=== PATIENT | female | born 1955 | race Caucasian/White ===

== ENCOUNTER → 2018-02-27 11:45 | Day surgery (SDC) | payer BC ==
--- NOTE | 2018-02-19 18:11 | HP ---
AMENDED REPORT NOW INCLUDES COSIGNER DESIGNATION PREOPERATIVE HISTORY AND PHYSICAL: DATE OF ADMISSION/SURGERY: 02/27/18 DATE OF OFFICE VISIT: 02/19/18 ATTENDING SURGEON: Dr. Stella Black.* (DICTATED BY ISAI ROCHA) PROCEDURE: Right knee arthroscopy, partial meniscectomy. CHIEF COMPLAINT: Right knee. HISTORY OF PRESENT ILLNESS: Kelly is a 62-year-old female, who presents to the clinic for followup of right knee pain due to a meniscus tear. She also has osteoarthritis. She has failed conservative measures and therefore agreed to undergo a right knee arthroscopy with partial meniscectomy with Dr. Black on . PAST MEDICAL HISTORY: Hypertension, GERD, iron-deficiency anemia, depression, coronary artery disease, history of bariatric surgery, history of bypass, chronic neck and back pain, osteoarthritis, anxiety, fibromyalgia, and nephrolithiasis. PAST SURGICAL HISTORY: , abdominoplasty, vertical banded gastroplasty , diskectomy, CABG, shoulder arthroscopy, kidney stone removal, and LASIK surgery. The patient denies prior complications with anesthesia. MEDICATIONS: 1. Buprenorphine 10 mcg 1 patch weekly. 2. Fluoxetine 40 mg 1 by mouth every day. 3. at night as needed. 4. Lisinopril 5 mg 1 by mouth every day. 5. Robaxin 500 mg 1 capsule at bedtime. 6. Nabumetone 750 mg 1 cap daily as needed. 7. Voltaren 1% 2 g as needed for pain. 8. Crestor 5 mg 1 by mouth daily. 9. Lidocaine 5% as needed. 10. Esomeprazole 40 mg 1 cap by mouth every day. 11. Vicodin 5/300 one to two every 6 hours as needed for pain. 12. Alprazolam 0.25 one by mouth 3 times a day as needed for anxiety. 13. Hyoscyamine sulfate 0.125 mg 1 sublingual every day as needed. 14. Zovirax 5% apply as needed. 15. Multivitamin 1 by mouth daily. 16. Vitamin B complex 1 by mouth daily. 17. Vitamin D3 5000 units 1 by mouth daily. 18. Turmeric 1000 mg 1 cap daily. 19. Fluconazole 150 one by mouth as needed. 20. Diflucan 100 mg 1 by mouth every day as needed. ALLERGIES: DEMEROL. FAMILY HISTORY: Positive for hypertension, cancer, RA, and osteoarthritis. SOCIAL HISTORY: She lives with her spouse. 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 She is right-hand dominant. She denies tobacco or illegal drug use. She denies alcohol consumption. REVIEW OF SYSTEMS: A 14-point review of systems was reviewed with the patient. Positive for current complaint, otherwise negative. Denies fever, chills, chest pain, shortness of breath, history of bleeding disorder, history of DVT or PE. PHYSICAL EXAMINATION GENERAL: A 62-year-old well-developed, well-nourished female, in no acute distress. Alert and oriented x3. VITAL SIGNS: Height 65, weight 212, pulse 60, blood pressure 128/78, temperature 97.7, BMI 35.3. HEENT: Normocephalic, atraumatic. PERRLA. Throat clear. NECK: Supple. PULMONARY: Lungs are clear to auscultation bilaterally. No wheezing, rhonchi, or rales. CARDIO: Regular rate and rhythm. S1, S2. No murmurs, gallops, or rubs. No edema. ABDOMEN: Positive bowel sounds. Soft, nontender. NEURO: Alert and oriented x3. Cranial nerves grossly intact. MUSCULOSKELETAL: Right lower extremity: Skin is intact. Range of motion is 0 to 120. Stable to varus and valgus stress. Mild effusion. Stable Katarina. Negative posterior drawer. Calf soft, nontender. +5/5 strength to ankle dorsiflexion and plantarflexion. +2 DP pulse. Sensation intact to light touch distally. DIAGNOSTIC STUDIES: MRI of the right knee revealed moderate osteoarthritic changes with chondral degeneration and vertical tear of the posterior horn of the medial meniscus. IMPRESSION: Right knee meniscus tear and osteoarthritis. PLAN: The patient is scheduled to undergo a right knee arthroscopy with partial meniscectomy with Dr. Black on 02/27/18. She will follow up 10 to 14 days postop. We will discuss with her PCP , Radha Grimaldo, as to the appropriate postop pain management since she is a chronic pain patient. ISAI ROCHA [id number]/[facility] #: [id number] [facility]Car
[~2018-02-27 11:45] MED LIST: Buffered Lidocaine 0.9% SYRIN* 5 ML/SYR SYRINGE INTRADERM ONE; Buffered Lidocaine 0.9% SYRIN* 5 ML/SYR SYRINGE ONE; Dexamethasone IV* 4 MG/ML 1 ML (4 MG) ONE; DiMENhydriNATE IV* 50 MG/ML VIAL IV PUSH PRN; HYDROmorphone INJ1* 1 MG/ML SYRINGE IV PRN; Ketorolac INJ* 30 MG/ML 1 ML VIAL ONE; Lidocaine 1% MPF wEPI 200,000* 30 ML SDV ONE; Midazolam* 1 MG/ML 5 ML VIAL (5 MG) ONE; Morphine PCA ADULT* 5 MG/ML 30 ML ONE; Naloxone* 0.4 MG/ML 1 ML VIAL IV PRN; Ondansetron INJ* 2 MG/ML VIAL IV PRN; Ondansetron INJ* 2 MG/ML VIAL ONE; Propofol* 10 MG/ML 20 ML BTL IV PUSH ONE; Ropivacaine* 2 MG/ML 20 ML VIAL (0.2%) ONE; Scopolamine 1.5 mg* PATCH TRANSDERM PRN; Scopolamine PATCH Remove* 1 NOTE MISC PATCH OFF ONE; ceFAZolin 2 GM PREMIX in ORs 2 GM/50 ML BAG IVPB ONE; fentaNYL* 50 MCG/ML 2 ML VIAL (100 MCG VIAL) IV PRN; fentaNYL* 50 MCG/ML 2 ML VIAL (100 MCG VIAL) ONE; methylPREDNISolone ACETATE 80* 80 MG/ML 1 ML VIAL ONE; oxyCODONE/Acetamin 5/325 MG* TAB ONE; oxyCODONE/Acetamin 5/325 MG* TAB PO PRN
[2018-02-27 17:45] VITALS: BP 129/65
--- NOTE | 2018-02-28 14:40 | OP ---
CC: PCP OPERATIVE REPORT: DATE OF OPERATION: 02/27/18 DATE OF : 59 SURGEON: Stella Black MD BOX FEEDER: ISAI Portillo An switchboard operator assistant was needed for the entirety of the case because of the patient's size and her body habit us and was utilized for positioning, retraction, and holding the leg. ANESTHESIOLOGIST: Dr. Landeros. ANESTHESIA: General. PRE-OP DIAGNOSIS: Meniscus tear as well as arthritis. POST-OP DIAGNOSIS: Loose body, numerous; synovitis; arthritis in the patellofemoral and the lateral compartment; lateral meniscus tearing. OPERATIVE PROCEDURE: Right knee arthroscopy with partial lateral meniscectomy, synovectomy, chondrop lasty of the patella and lateral compartment, removal of loose bodies numerous all less than 5 mm. COMPLICATIONS: None. ESTIMATED BLOOD LOSS: Minimal. INDICATIONS: Kelly Winters is a 62-year-old female who has had persistent knee pain that began several months ago. Over a year, she has chronic pain, twisting, catching pain. She was very active. Risk s and benefits were discussed at length included, but not limited to bleeding; infection; damage to n erves, vessels, surrounding structures; wound nonhealing; persistent pain; need for further surgery, scarring, stiffness, incomplete relief of symptoms, risk of anesthesia. We did discuss that she does have arthritis. This may not be responsive to arthroscopy and the patient did seek a second opinion at my request and elected to proceed with surgical treatment. DESCRIPTION OF PROCEDURE: The patient was greeted in the preoperative area by the attending surgeon. Correct extremity was marked and consent was confirmed. The patient was brought back to the operat ing suite. The patient was placed in supine position on the operating table. She then underwent gen eral anesthesia with LMA intubation, after which an unsterile tourniquet was placed on the proximal t high. Lateral post was positioned. The right leg was then prepped and draped in the usual sterile fa shion beginning with chlorhexidine soap, scrub, and alcohol wipe and a final prep of ChloraPrep. Next, after appropriate surgical pause indicating site, side, procedure and administration of antibio tics, the knee was intraarticularly injected with 1% lidocaine with epi. Anterolateral portal was ma de sharply with 11-blade. The scope was introduced through the joint. Joint was examined. The ACL and PCL were intact. The medial femoral condyle had 0 to 1 changes, except for one portion more prox imally, along this area she had grade 2 changes. The medial meniscus was intact at the body. The ro ot had some mild fraying. There was abundant synovitis anteriorly. The shaver as well as the electr ocautery device were then used to do hemostasis and remove the abundant synovitis. This revealed the lateral compartment had grade 4 changes that left grade 3 changes of the trochlea. The patella had grade 1 and 2 changes. There were numerous loose bodies, loose chondral pieces that were lavaged and removed. The medial and lateral gutters were intact. The shaver and electrocautery device were use d to gain hemostasis and all clots were removed along with synovitis. The knee was placed in figure- of-four where there were grade 3 and some areas of grade 4 changes on the tibial plateau. Lateral men iscus had unstable fraying of the body as well as the root, which was debrided using the shaver. Onc e the procedure was completed and images were obtained, the knee was then sterilely lavaged and remov ed loose debris. Wounds were then copiously irrigated with sterile saline. Portals were closed with 3-0 nylon. Sterile dressings were applied as well as Cryo/Cuff. She was awoken from anesthesia and transferred to PACU in stable condition. POSTOPERATIVE PLAN: Range of motion as tolerated. Weightbearing with crutches for the first 3 to 5 days. Discharge on pain medication. DVT prophylaxis considered, but deferred due to no previous per thelma or family history. I will see the patient back in 10 to 14 days. [id number]/[facility] #: [id number]
== END | disposition home or self-care (01) ==
LOC: OR 11:45
PROVIDERS: ATTEND Orthopaedic Surgery
DX: S83.281A Other tear of lateral meniscus, current injury, right knee, initial encounter (principal); M65.861 Other synovitis and tenosynovitis, right lower leg; M23.41 Loose body in knee, right knee; M17.11 Unilateral primary osteoarthritis, right knee; G89.18 Other acute postprocedural pain; I10 Essential (primary) hypertension; K21.9 Gastro-esophageal reflux disease without esophagitis; D50.9 Iron deficiency anemia, unspecified; I25.10 Atherosclerotic heart disease of native coronary artery without angina pectoris; M19.90 Unspecified osteoarthritis, unspecified site; F41.8 Other specified anxiety disorders; X58.XXXA Exposure to other specified factors, initial encounter; Y92.9 Unspecified place or not applicable
CPT/HCPCS: A9270-GY; J0690; J1040; J1100; J1885; J2001; J2250; J2270; J2405; J2704; J2795; J3010

== ENCOUNTER 2018-08-06 12:22 | Inpatient (IN) | payer BC ==
--- NOTE | 2018-08-01 09:42 | HP ---
Amended report to enter cosigning physician. HISTORY AND PHYSICAL: DATE OF ADMISSION/SURGERY: 08/06/18 DATE OF OFFICE VISIT: 07/31/18 SURGEON: oCurtney Prieto MD* (dictated by ISAI Newton). PROCEDURE: Right total knee arthroplasty. CHIEF COMPLAINT: Right knee pain. HISTORY OF PRESENT ILLNESS: Ms. Winters is a 63-year-old female who complains of right knee pain. She has failed conservative treatment and elected to proceed with right total knee arthroplasty. PAST MEDICAL HISTORY: 1. Anxiety. 2. Depression. 3. Esophageal spasms. 4. Hypertension. 5. GERD. 6. Byers esophagus. 7. Coronary artery disease. PAST SURGICAL HISTORY: 1. CABG in 2013. 2. Uvuloplasty. 3. . 4. Gastroplasty. 5. Abdominoplasty. 6. Lumbar diskectomy. 7. Right shoulder arthroscopy. 8. Right knee arthroscopy. CURRENT MEDICATIONS: 1. Multivitamin. 2. Vitamin B complex. 3. Vitamin D3. 4. Zofran 4 mg every 8 hours as needed. 5. Lidocaine patch as needed. 6. Alprazolam 0.25 mg 3 times a day as needed. 7. Crestor 5 mg every day. 8. Lisinopril 5 mg a day. 9. Robaxin 500 mg q.h.s. 10. Nabumetone 750 mg twice a day. 11. Hyoscyamine 0.125 mg sublingual as needed. 12. Bupropion 7.5 mg weekly. 13. Vicodin 7.5 mg 1 to 2 every 6 hours as needed. 14. Omeprazole 40 mg daily. 15. Fluoxetine 20 mg daily. ALLERGIES: DEMEROL. FAMILY HISTORY: Cancer and hypertension. SOCIAL HISTORY: She is a 63-year-old female. She lives with her . She does not smoke or use drugs. REVIEW OF SYSTEMS: A complete 14-point review of systems was reviewed with the patient. It was positive for GERD. Denies history of DVT, PE, hepatitis, HIV, or anesthesia problems. PHYSICAL EXAMINATION GENERAL: She is well developed, well nourished, in no acute distress. VITAL SIGNS: She stands 55 inches tall, weighs 215 pounds. Her blood pressure is 126/78, her heart rate is 68. HEENT: Normocephalic, atraumatic. NECK: Supple, no palpable lymph nodes. PULMONARY: Lungs are clear to auscultation bilaterally. CARDIAC: Regular rate and rhythm. Strong S1, S2. ABDOMEN: Soft, nontender, nondistended. NEUROLOGICAL: She is alert and oriented x3. MUSCULOSKELETAL: Right lower extremity, skin is intact. There are no open wounds or abrasions. There is a moderate effusion of the right knee joint. She has some tenderness over the medial and lateral joint line. She walks with an antalgic type gait. Range of motion is 10 to 120 degrees of flexion with patellofemoral crepitus. She has 2+ dorsalis pedis pulse, intact sensation. She is able to dorsiflex and plantar flex. ASSESSMENT AND PLAN: Ms. Winters is a 63-year-old female with end-stage osteoarthritis of the right knee. She has failed conservative treatment and elected to proceed with a right total knee arthroplasty. The surgery is scheduled for 08/06/[address] Prieto discussed the risks and benefits of the surgery at today's visit and all of her questions were answered. She will follow up with Dr. Prieto 2 weeks after the surgery. ISAI NEWTON [id number]/[facility] #: [id number] TIAN
[~2018-08-06 12:22] MED LIST changes: +ALPRAZolam TAB* 0.25 MG PO PRN; -Buffered Lidocaine 0.9% SYRIN* 5 ML/SYR SYRINGE INTRADERM ONE; -Buffered Lidocaine 0.9% SYRIN* 5 ML/SYR SYRINGE ONE; +Buffered Lidocaine 1% SYRIN* 1 ML/SYRINGE INTRADERM ONE; -Dexamethasone IV* 4 MG/ML 1 ML (4 MG) ONE; -DiMENhydriNATE IV* 50 MG/ML VIAL IV PUSH PRN; +Famotidine IV* 10 MG/ML 2 ML (20 mg) IV ONE; +Gabapentin CAP(*) 300 MG PO ONE; -HYDROmorphone INJ1* 1 MG/ML SYRINGE IV PRN; -Ketorolac INJ* 30 MG/ML 1 ML VIAL ONE; +Lactated Ringers 1000 ML Bag* 1,000 ML IV SCH; -Lidocaine 1% MPF wEPI 200,000* 30 ML SDV ONE; -Midazolam* 1 MG/ML 5 ML VIAL (5 MG) ONE; -Morphine PCA ADULT* 5 MG/ML 30 ML ONE; -Naloxone* 0.4 MG/ML 1 ML VIAL IV PRN; -Ondansetron INJ* 2 MG/ML VIAL IV PRN; -Ondansetron INJ* 2 MG/ML VIAL ONE; -Propofol* 10 MG/ML 20 ML BTL IV PUSH ONE; -Ropivacaine* 2 MG/ML 20 ML VIAL (0.2%) ONE; -Scopolamine 1.5 mg* PATCH TRANSDERM PRN; -Scopolamine PATCH Remove* 1 NOTE MISC PATCH OFF ONE; +Tranexamic Acid 1,000 MG in NS 0.9% 50 ML* (outpatient use) IV SCH; -ceFAZolin 2 GM PREMIX in ORs 2 GM/50 ML BAG IVPB ONE; -fentaNYL* 50 MCG/ML 2 ML VIAL (100 MCG VIAL) IV PRN; -fentaNYL* 50 MCG/ML 2 ML VIAL (100 MCG VIAL) ONE; -methylPREDNISolone ACETATE 80* 80 MG/ML 1 ML VIAL ONE; -oxyCODONE/Acetamin 5/325 MG* TAB ONE; -oxyCODONE/Acetamin 5/325 MG* TAB PO PRN
[2018-08-06] MEDS ORDERED: ceFAZolin 2 GM PREMIX in ORs 2 GM/50 ML BAG IVPB ONE (12:57)
[2018-08-06] MEDS ORDERED: Gabapentin CAP(*) 300 MG ONE (12:57)
[2018-08-06] MEDS ORDERED: Buffered Lidocaine 1% SYRIN* 1 ML/SYRINGE INTRADERM ONE (12:57)
[2018-08-06] MEDS ORDERED: Famotidine IV* 10 MG/ML 2 ML (20 mg) ONE (12:58)
[2018-08-06] MEDS ORDERED: fentaNYL* 50 MCG/ML 2 ML VIAL (100 MCG VIAL) ONE (13:29)
[2018-08-06] MEDS ORDERED: Midazolam* 1 MG/ML 5 ML VIAL (5 MG) ONE (13:29)
[2018-08-06] MEDS ORDERED: ROPIVACAINE 5 MG/ML 30 ML BTL (0.5%) ONE ×2 (15:27→15:33)
[2018-08-06] MEDS ORDERED: Lidocaine 1%* 5 ML VIAL ONE (15:27)
[2018-08-06] MEDS ORDERED: Propofol* 10 MG/ML 20 ML BTL ONE ×2 (16:53→17:57)
[2018-08-06] MEDS ORDERED: Dexamethasone IV* 4 MG/ML 1 ML (4 MG) ONE (16:53)
[2018-08-06] MEDS ORDERED: Lidocaine 2% PF * 5 ML VIAL ONE (16:53)
[2018-08-06] MEDS ORDERED: Ondansetron INJ* 2 MG/ML VIAL ONE (16:53)
[2018-08-06] MEDS ORDERED: Ketorolac INJ* 30 MG/ML 1 ML VIAL ONE (16:53)
[2018-08-06] MEDS ORDERED: Succinylcholine* 20 MG/ML 10 ML VIAL ONE (16:53)
[2018-08-06] MEDS ORDERED: oxyCODONE/Acetamin 5/325 MG* TAB PO PRN (17:21)
[2018-08-06] MEDS ORDERED: Magnesium Hydroxide LIQ* 30 ML UDC PO PRN (17:21)
[2018-08-06] MEDS ORDERED: diPHENhydraMINE IV* 50 MG/ML 1 ml VIAL (BENADRYL) IV PRN (17:21)
[2018-08-06] MEDS ORDERED: Bisacodyl SUPP* 10 MG SUPP PR PRN (17:21)
[2018-08-06] MEDS ORDERED: Acetaminophen TAB* 325 MG PO PRN (17:21)
[2018-08-06] MEDS ORDERED: Ondansetron TAB* 4 MG PO PRN (17:25)
[2018-08-06] MEDS ORDERED: Nabumetone TAB* 500 MG PO PRN (17:25)
[2018-08-06] MEDS ORDERED: Hyoscyamine TAB* 0.125 MG PO PRN (17:25)
[2018-08-06] MEDS ORDERED: Midazolam* 1 MG/ML 2 ML VIAL (2 MG) ONE ×2 (17:25→19:18)
[2018-08-06] MEDS ORDERED: DiMENhydriNATE IV* 50 MG/ML VIAL IV PUSH PRN (17:29)
[2018-08-06] MEDS ORDERED: Acetaminophen IV 1GM/100ML * 1,000 MG/100 ML VIAL IVPB ONE (17:29)
[2018-08-06] MEDS ORDERED: Lactated Ringers 1000 ML Bag* 1,000 ML IV SCH (18:00)
--- NOTE | 2018-08-06 18:08 | OP ---
Operative Report - Blank - Operative Report Date of Operation: 08/06/18 Note: WENCESLAO AGUDELO 1955 Date of Surgery: 08/06/18 Courtney Prieto MD Director Of Publications: Luis Angel ALEX did help throughout the procedure with preparation of the knee, wound retraction, manipulation of the knee, and wound closure. Anesthesiologist: Lisset Kessler MD Anesthesia Type: spinal Preoperative Diagnosis: Right severe degenerative osteoarthritis of the knee Postoperative Diagnosis: As above Procedure Performed: Right Total Knee Arthroplasty Tourniquet time: 42 minutes Complications: None Specimen: Bone and cartilage from the right knee joint sent to pathology. Hardware Used: Cemented Baker and Nephew total knee hardware was used - For the femur a size 5 right narrow oxinium legion posterior stabilized femoral component, for the tibia a size 3 malika II tibial baseplate, for the insert a size 9mm 3-4 posterior stabilized articular polyethylene insert, and for the patella a size 32 3-peg all poly patella. Brief History/Indication: WENCESLAO AGUDELO was known in clinic and had a history of severe right knee pain and swelling. She failed conservative treatment with anti-inflammatories, pain pills, intra-articular injections and physical therapy. She elected to undergo right total knee arthroplasty due to continued pain and decreased quality of life. Radiographs showed severe end stage osteoarthritis of the knee with bone on bone contact. Informed consent was obtained from the patient. She understood the risks of surgery included but were not limited to: bleeding, infection, damage to nearby structures, intraoperative fracture, nerve palsy, failure of the hardware, early loosening, knee stiffness or loss of motion, anesthesia complications, stroke, heart attack , blood clot and . She wished to proceed. Intra-Operative Findings: Intraoperatively the patient was noted to have severe loss of cartilage in all 3 compartments of the knee. Description of the Procedure: WENCESLAO AGUDELO was identified in the preanesthesia unit. Her right knee was marked as the correct operative side. Informed consent was signed and placed in the chart. The patient was taken to the operating room and placed under anesthesia without complication. A yadav catheter was placed. A tourniquet was placed on the right thigh. The right lower extremity was prepped and draped in the usual sterile fashion. Preoperative time-out was made to correctly identify the patient, side and site. Appropriate intraoperative antibiotics were given within one hour of incision. Tourniquet was inflated. A midline incision was made and carried sharply down to the extensor mechanism. A new 10 blade was used to make a standard medial parapatellar arthrotomy. The patella was subluxed laterally. Electrocautery was used to dissect soft tissue off the superomedial tibia to the midsagittal plane. The knee was flexed up. The anterior horn of the lateral meniscus and the ACL were sharply incised. A drill was used to enter the distal femur. The intramedullary distal femoral cutting guide was pinned on the distal femur. The oscillating saw was used to make the distal femoral cut. The external rotation guide was pinned on the distal femur and the distal femur was sized to a size 5. The size 5 multi-cutting jig was pinned on the distal femur. The oscillating saw was used to make the appropriate 4 chamfer cuts. Next the PCL was completely released. The extramedullary tibial cutting guide was pinned on the proximal tibia and the oscillating saw was used to make the proximal tibial cut perpendicular to the mechanical axis of the tibia. The bone was carefully removed. The knee was brought out into full extension. The spacer block was placed and had excellent fit with the knee in full extension. The medial and lateral ligaments were well balanced. The flexion and extension gaps were well balanced. The knee was flexed up. Lamina internet and e business project manager was placed both medially and laterally. Any remaining meniscus was removed with electrocautery. Curved osteotome was used to remove any posterior osteophytes. The tibial tray and drop beth were placed and confirmed a satisfactory tibial cut. The size 5 right narrow femoral trial was impacted onto the distal femur. This trial had excellent fit and stability. The box for the posterior stabilized implant was prepared using a box cut osteotome and a reamer. Next a tibial tray trial and 9 mm insert trial was placed. The knee was taken through a range of motion and had full extension to 130 degrees of flexion. Patellofemoral tracking was satisfactory. The patella was inverted and sized to a size 32. Three peg holes were drilled through the size 32 drill guide. The trial patella was placed and the knee was taken through a range of motion. There was satisfactory patellofemoral tracking. All trials were removed. The tibia was subluxed anteriorly and sized to a size 3. The proximal tibial was prepared with a size 3 keel punch. All bony cut surfaces were irrigated with sterile saline and dried. Final implants were cemented into place starting with the tibia, followed by the femur, and last the patella. A 9 mm insert trial was placed and the knee was brought into full extension. Tourniquet was turned down and the knee was copiously irrigated with sterile saline. Electrocautery was used to obtain meticulous hemostasis. Once the cement had fully cured, the insert trial was removed. Any excess cement was removed from around the hardware and capsule. Final insert chosen was a 9 mm posterior stabilized Malika II articular insert size 3-4. Stability of the insert was checked and noted to be stable. The extensor mechanism was closed using number 1 vicryls. The rest of the incision was closed in a layered fashion using 0 and 2-0 vicryls. The skin was closed using 3-0 nylon suture. Sterile xeroform, 4x4s and webril were used to cover the incision. Reggie wrap and cold pack were used to cover the dressings. The patients anesthesia was reversed without difficulty. She was taken to the PACU in stable condition. Intended weight-bearing will be as tolerated.
[2018-08-06] MEDS ORDERED: Gabapentin CAP(*) 100 MG PO ONE (18:31)
[2018-08-06] MEDS ORDERED: oxyCODONE/Acetamin 5/325 MG* TAB ONE (18:38)
[2018-08-06] MEDS ORDERED: Gabapentin CAP(*) 100 MG ONE (18:38)
[2018-08-06] MEDS: oxyCODONE/Acetamin 5/325 MG* TAB PO PRN ×2 (18:39→18:40)
[2018-08-06] MEDS ORDERED: HYDROmorphone INJ1* 1 MG/ML SYRINGE ONE (19:04)
[2018-08-06] MEDS ORDERED: Midazolam* 1 MG/ML 2 ML VIAL (2 MG) IV SLOW PU ONE (19:08)
[2018-08-06] MEDS: HYDROmorphone INJ1* 1 MG/ML SYRINGE IV SLOW PU PRN ×5 (19:09→19:51)
[2018-08-06] MEDS ORDERED: ALPRAZolam TAB* 0.25 MG PO ONE (19:32)
[2018-08-06] MEDS ORDERED: hydrALAZINE IV* 20 MG/ML VIAL ONE (19:39)
[2018-08-06] MEDS: hydrALAZINE IV* 20 MG/ML VIAL IV SLOW PU ONE ×2 (19:46→20:02)
[2018-08-06] MEDS ORDERED: BUPRENORPHINE TRANSDERM SCH (22:30)
[2018-08-06] MEDS: Methocarbamol TAB* 500 MG PO PRN (22:33)
[2018-08-06] MEDS: Docusate CAP* 100 MG PO SCH (22:34)
[2018-08-06] MEDS: Magnesium Hydroxide LIQ* 30 ML UDC PO SCH (22:34)
[2018-08-06] MEDS: oxyCODONE TAB* 5 MG TAB PO PRN (22:34)
[2018-08-06] MEDS: ceFAZolin 1 GM ADVAN(*) 1 GM in NS 0.9% 50 ML* 50 ML IVPB SCH (23:39)
[2018-08-07] MEDS: oxyCODONE/Acetamin 5/325 MG* TAB PO PRN ×6 (00:51→22:32)
[2018-08-07] MEDS: oxyCODONE TAB* 5 MG TAB PO PRN ×5 (02:55→20:44)
[2018-08-07] MEDS: Ondansetron INJ* 2 MG/ML VIAL IV PRN ×2 (03:08→08:41)
[2018-08-07 06:44] LABS: Hematocrit 34 % (33-41); Hemoglobin 11.5 g/dL (12.0-16.0); Mean Platelet Volume 8.6 fL (7.4-10.4); Platelet Count 185 10^3/uL (150-450)
[2018-08-07 07:06] LABS: EGFR African American 99.6 (>60); EGFR Non-African American 82.3 (>60); Potassium 4.5 mmol/L (3.5-5.0)
[2018-08-07] MEDS ORDERED: BUPRENORPHINE TRANSDERM SCH (08:00)
[2018-08-07] MEDS: Magnesium Hydroxide LIQ* 30 ML UDC PO SCH ×2 (08:08→22:32)
[2018-08-07] MEDS: ceFAZolin 1 GM ADVAN(*) 1 GM in NS 0.9% 50 ML* 50 ML IVPB SCH ×2 (08:08→15:58)
[2018-08-07] MEDS: Atorvastatin* 10 MG TAB PO SCH (08:09)
[2018-08-07] MEDS: Docusate CAP* 100 MG PO SCH ×2 (08:10→20:44)
[2018-08-07] MEDS: Lisinopril TAB* 5 MG PO SCH (08:10)
[2018-08-07] MEDS: FLUoxetine CAP* 20 MG PO SCH (08:11)
[2018-08-07] MEDS: Apixaban* 2.5 MG TAB PO SCH ×2 (08:44→20:45)
[2018-08-07] MEDS ORDERED: Morphine TAB Extended Release (*) 30 MG TAB.ER PO SCH (09:00)
[2018-08-07] MEDS: Morphine INJ* 2 MG/ML 1 ML SYRINGE (TWO MG - NEW SYRINGE VERSION) IV PRN ×2 (09:21→20:34)
--- NOTE | 2018-08-07 11:01 | PN ---
Progress Note - Progress Note Date of Service: 08/07/18 SOAP: Subjective: []Pt seen and examined OOB in chair. Right knee with 9/10 pain, nursing is in the room with pain medication. Denies CP, SOB, dizziness, nausea, confusion. Has a buprenorphine 7.5 mcg patch at home, she is on a 10 mcg patch here. Objective: []General: Appears well in NAD, carrying on appropriate conversation does not appear drowsy or sedated RLE: Right knee dressing CDI, thigh is soft, DP2+, DF/PF intact, sensation intact to light touch distally Calves supple and nontender without erythema, edema or palpable cords Assessment: []POD 1 sp right total knee arthroplasty Plan: []WBAT PT/OT eliquis 2.5 mg po BID If pain not well controlled will plan to increase oxycodone dose. Vital Signs Temp 98.5 F 08/07/18 07:23 Pulse 69 08/07/18 07:23 Resp 18 08/07/18 10:05 BP 135/54 08/07/18 07:23 Pulse Ox 98 08/07/18 07:23 Intake & Output 08/06/18 08/07/18 08/07/18 18:59 06:59 18:59 Intake Total 1600 755 535 Output Total 775 Balance 1600 -20 535 Weight 210 lb Intake: IV Fluids 1600 55 55 ABX - CEFAZOLIN 55 55 LR 1600 Oral 700 480 Output: Shi 775 Other: # Bowel Movements 0 Laboratory Last Values Hgb 11.5 g/dL (12.0-16.0) L 08/07/18 05:53 Hct 34 % (33-41) 08/07/18 05:53 Plt Count 185 10^3/uL (150-450) 08/07/18 05:53 MPV 8.6 fL (7.4-10.4) 08/07/18 05:53 Sodium 138 mmol/L (135-145) 08/07/18 05:53 Potassium 4.5 mmol/L (3.5-5.0) 08/07/18 05:53 Chloride 104 mmol/L (101-111) 08/07/18 05:53 Carbon Dioxide 27 mmol/L (22-32) 08/07/18 05:53 Anion Gap 7 mmol/L (2-11) 08/07/18 05:53 BUN 18 mg/dL (6-24) 08/07/18 05:53 Creatinine 0.72 mg/dL (0.51-0.95) 08/07/18 05:53 Est GFR ( Amer) 99.6 (>60) 08/07/18 05:53 Est GFR (Non-Af Amer) 82.3 (>60) 08/07/18 05:53 BUN/Creatinine Ratio 25.0 (8-20) H 08/07/18 05:53 Glucose 134 mg/dL (70-100) H 08/07/18 05:53 Calcium 9.0 mg/dL (8.6-10.3) 08/07/18 05:53
[2018-08-07] MEDS: Methocarbamol TAB* 500 MG PO PRN (11:39)
[2018-08-07] MEDS ORDERED: PROCHLORPERAZINE INJ 5 MG/ML 2 ML VIAL IV PRN (13:34)
[2018-08-07] MEDS ORDERED: Pantoprazole TAB * 40 MG TAB PO SCH (15:30)
[2018-08-07] MEDS ORDERED: ALPRAZolam TAB* 0.25 MG PO PRN (21:00)
[2018-08-08] MEDS: Morphine INJ* 2 MG/ML 1 ML SYRINGE (TWO MG - NEW SYRINGE VERSION) IV PRN ×2 (00:07→08:06)
[2018-08-08] MEDS: oxyCODONE TAB* 5 MG TAB PO PRN ×4 (01:21→13:02)
[2018-08-08] MEDS: Methocarbamol TAB* 500 MG PO PRN (02:56)
[2018-08-08] MEDS: oxyCODONE/Acetamin 5/325 MG* TAB PO PRN (02:56)
[2018-08-08] MEDS: Ondansetron INJ* 2 MG/ML VIAL IV PRN (08:06)
[2018-08-08] MEDS: Apixaban* 2.5 MG TAB PO SCH (08:11)
[2018-08-08] MEDS: Atorvastatin* 10 MG TAB PO SCH (08:11)
[2018-08-08] MEDS: FLUoxetine CAP* 20 MG PO SCH (08:12)
[2018-08-08] MEDS: Docusate CAP* 100 MG PO SCH (08:12)
[2018-08-08] MEDS: Lisinopril TAB* 5 MG PO SCH (08:12)
[2018-08-08] MEDS: Magnesium Hydroxide LIQ* 30 ML UDC PO SCH (08:12)
[2018-08-08 09:11] LABS: Hematocrit 31 % (35-47); Hemoglobin 10.4 g/dL (12.0-16.0); Platelet Count 176 10^3/uL (150-450)
--- NOTE | 2018-08-08 09:49 | PN ---
Progress Note - Progress Note Date of Service: 08/08/18 SOAP: Subjective: []Pt seen at bedside. Her pain is better controlled with oxycodone increased to 20mg. Denies CP, SOB, dizziness, nausea, confusion. Objective: []General: Appears well in NAD, carrying on appropriate conversation does not appear drowsy or sedated RLE: Right knee dressing changed, incision CDI, thigh is soft, DP2+, DF/PF intact, sensation intact to light touch distally Calves supple and nontender without erythema, edema or palpable cords Assessment: []POD 2 sp right total knee arthroplasty Plan: []WBAT PT/OT eliquis 2.5 mg po BID Oxy increased to 20 mg Vital Signs Temp 99.1 F 08/08/18 07:48 Pulse 73 08/08/18 07:48 Resp 8 08/08/18 09:51 BP 142/72 08/08/18 07:48 Pulse Ox 96 08/08/18 08:00 Intake & Output 08/07/18 08/08/18 08/08/18 18:59 06:59 18:59 Intake Total 925 860 450 Output Total 300 400 Balance 625 460 450 Intake: IV Fluids 55 ABX - CEFAZOLIN 55 Oral 870 860 450 Output: Urine 300 400 Laboratory Last Values Hgb 10.4 g/dL (12.0-16.0) L 08/08/18 06:09 Hct 31 % (35-47) L 08/08/18 06:09 Plt Count 176 10^3/uL (150-450) 08/08/18 06:09 MPV 9.0 fL (7.4-10.4) 08/08/18 06:09 Sodium 138 mmol/L (135-145) 08/07/18 05:53 Potassium 4.5 mmol/L (3.5-5.0) 08/07/18 05:53 Chloride 104 mmol/L (101-111) 08/07/18 05:53 Carbon Dioxide 27 mmol/L (22-32) 08/07/18 05:53 Anion Gap 7 mmol/L (2-11) 08/07/18 05:53 BUN 18 mg/dL (6-24) 08/07/18 05:53 Creatinine 0.72 mg/dL (0.51-0.95) 08/07/18 05:53 Est GFR ( Amer) 99.6 (>60) 08/07/18 05:53 Est GFR (Non-Af Amer) 82.3 (>60) 08/07/18 05:53 BUN/Creatinine Ratio 25.0 (8-20) H 08/07/18 05:53 Glucose 134 mg/dL (70-100) H 08/07/18 05:53 Calcium 9.0 mg/dL (8.6-10.3) 08/07/18 05:53
--- NOTE | 2018-08-08 10:22 | DS ---
Orthopedic Discharge Summary - Discharge Summary Discharge to home in stable condition 08/08/18 Date of Admission:08/06/18 Date of Discharge: 08/08/18 Date of Surgery: 08/06/18 Attending Orthopedic Provider: Dr Prieto Pre-operative Diagnosis: Right knee osteoarthritis Operative Procedure: right total knee arthroplasty Condition of Patient: stable History: WENCESLAO AGUDELO is a 63 year old F with years of increasingly severe right kne pain. Patient has failed conservative management and has elected to undergo a right total knee replacement Hospital Course: WENCESLAO was admitted to [facility] on 08/06/18. Patient underwent a right total knee replacement without complication followed by a brief recovery in PACU and transfer to the Short Stay Surgical Unit in stable condition. Our hospitalist service, physical therapy and occupational therapy also participated in this patients care. Post-op day 1: patient was alert and in no acute distress. Dressing was clean, dry and intact. Operative extremity dorsiflexion and plantarflexion intact, sensation intact to light touch distally, DP2+. Post-op day two: dressing was changed, incision was clean , dry and intact. Patient was deemed to be medically and orthopedically stable for discharge home. Physical therapy goals were met. Home Medications Medication Instructions Recorded Confirmed Type ALPRAZolam TAB* [Xanax TAB*] 0.25 mg PO BEDTIME PRN 09/11/13 08/06/18 History Hyoscyamine TAB* [Anaspaz 0.125 MG 0.125 mg PO TID PRN 09/11/13 08/06/18 History TAB*] Multivitamin [Multivitamins] 1 cap PO QAM 09/21/15 08/06/18 History Acyclovir OINT 5%(NF) [Zovirax 1 applic TOPICAL .SIX TIMES A DAY 08/30/16 History Oint 5%(NF)] PRN Lidocaine 5% OINT* TUBE [Xylocaine 1 applic TOPICAL SEE INSTRUCTIONS 08/30/16 History 5% Oint*] PRN Nabumetone TAB* [Relafen TAB*] 750 mg PO BID PRN 11/23/16 08/06/18 History Cholecalciferol TAB* [Vitamin D 2,000 units PO QAM 05/30/17 08/06/18 History TAB*] Esomeprazole Magnesium [Nexium] 40 mg PO 1530 05/30/17 08/06/18 History Vitamin B Complex CAP* [B Complex 1 cap PO QAM 05/30/17 08/06/18 History CAP*] Buprenorphine [Butrans] 7.5 mcg TD Q7D 07/04/17 08/06/18 History Lisinopril 5 mg PO QAM 07/04/17 08/06/18 History Rosuvastatin Calcium [Crestor] 5 mg PO QAM 07/04/17 08/06/18 History Fluoxetine HCl [Prozac] 20 mg PO QAM 08/02/17 08/06/18 History Diclofenac 1% GEL (NF) [Voltaren 1 applic TOPICAL QAM PRN 02/21/18 08/06/18 History 1% GEL (NF)] Ondansetron HCl [Zofran 4 MG TAB] 4 mg PO Q8H PRN 07/31/18 08/06/18 History Acetaminophen TAB* [Tylenol TAB*] 650 mg PO Q8H PRN tab 08/07/18 Rx Apixaban* [Eliquis*] 2.5 mg PO BID #60 tab 08/07/18 Rx Docusate CAP* [Colace Cap*] 100 mg PO BID #90 cap 08/07/18 Rx Oxycodone TAB(NF) [Oxycodone HCl 20 mg PO Q4H PRN #50 tab MDD 10 08/08/18 Rx 10 MG] Discharge Instructions following Orthopedic Surgery: Activity: * Weight Bearing as tolerated * Continue physical therapy and occupational therapy exercises as shown * Home PT Wound care: * OK to shower on post-op day 3, no bathing, swimming, or submerging wound. * Use gentle soap, pat dry. Cover with gauze, SETH wrap or tape. * Visiting home nurse to do wound checks. Call Orthopedic office for: * Increased drainage * Redness * Increased pain * Fever Go to ER with shortness of breath or chest pain. Diet: * Regular diet * Increase fluids and fiber to prevent constipation. * Continue to use stool softeners, call office if no bowel motion within 48 hours. Medications See Home Medication List in your packet for medications that you should take after discharge. DVT Prophylaxis: This medication increases bleeding tendency Eliquis Dosin.5 mg, 1 tab every 12 hours x 30 days Pain Control: oxycodone 10 mg tabs take 1-2 tabs by mouth every 4-6 hours as needed for pain. Maximum of 10 tabs per day. Hold for sedation, wean off as soon as able. Do not take oxycodone with hydrocodone/acetaminophen. Antibiotics are required prior to any dental work. FOLLOW UP: Follow up with [Conner] Within 10-14 days, call for appointment Please call our office with any questions or concerns ([phone])
[2018-08-08] MEDS ORDERED: Cyclobenzaprine TAB* 10 MG PO PRN (11:03)
[2018-08-08 11:31] VITALS: BP 89/61
== END 2018-08-08 13:28 | disposition home or self-care (01) | DRG 302 ==
LOC: AA 12:22 → SSU 21:32
PROVIDERS: ADMIT Orthopaedic Surgery Adult Reconstructive Orthopaedic Surgery; ATTEND Orthopaedic Surgery Adult Reconstructive Orthopaedic Surgery
PROC: 0SRC069 Replacement of Right Knee Joint with Oxidized Zirconium on Polyethylene Synthetic Substitute, Cemented, Open Approach (ICD-10-PCS; principal; 2018-08-06 15:30)
DX: M17.11 Unilateral primary osteoarthritis, right knee (principal); F41.9 Anxiety disorder, unspecified; F32.9 Major depressive disorder, single episode, unspecified; I10 Essential (primary) hypertension; K22.70 Barrett's esophagus without dysplasia; I25.10 Atherosclerotic heart disease of native coronary artery without angina pectoris; M25.461 Effusion, right knee; R53.82 Chronic fatigue, unspecified; M79.7 Fibromyalgia; K21.0 Gastro-esophageal reflux disease with esophagitis; G47.33 Obstructive sleep apnea (adult) (pediatric); M19.049 Primary osteoarthritis, unspecified hand; E28.2 Polycystic ovarian syndrome; M25.761 Osteophyte, right knee; Z95.1 Presence of aortocoronary bypass graft; Z88.8 Allergy status to other drugs, medicaments and biological substances; Z82.49 Family history of ischemic heart disease and other diseases of the circulatory system; Z87.442 Personal history of urinary calculi; Z98.84 Bariatric surgery status; Z80.9 Family history of malignant neoplasm, unspecified
CPT/HCPCS: 36415; 80048; 85014; 85018; 85049; A9270-GY; C1776; J0330; J0360; J0690; J0780; J1100; J1170; J1885; J2250; J2270; J2405; J2704; J2795; J3010

== ENCOUNTER 2019-03-04 10:21 | Observation (INO) | payer BC ==
[2019-03-04] MEDS ORDERED: NS 0.9% 1000 ML** 1,000 ML IV ONE (10:43)
--- OUTSIDE RECORDS SUMMARY | 2019-03-04 10:43 | XMS REPORT | Continuity of Care Document ---
:1955 External Reference #:[id number] Author Name Stella Black MD (transmitted by agent of provider Maribel Barksdale) Address [address] [facility] [facility] [place] [place] [address] Care Team Providers Name Role Phone Dipti Pacheco MD - Internal Care Team Information Equipment Specialist Medicine Marilu Mckinney DPM - Support Worker Care Team Information Equipment Specialist [phone] Problems Active Problems Provider Date Coronary arteriosclerosis Diomedes Cavanaugh M.D. Onset: 12/27/2012 Depressive disorder Rosio Lawton M.D., FACP Onset: 05/22/2010 Iron deficiency anemia Rosio Lawton M.D., FACP Onset: 05/22/2010 Gastroesophageal reflux disease Rosio Lawton M.D., FACP Onset: 05/22/2010 Benign essential hypertension Rosio Lawton M.D., FACP Onset: 05/22/2010 Arteriosclerosis of autologous vein Diomedes Cavanaugh M.D. Onset: 12/27/2012 coronary artery bypass graft History of bariatric surgical procedure Dipti Pacheco M.D. Onset: 2013 Disorder of shoulder Stella Black MD Onset: 12/16/2015 Strain of muscle, fascia and tendon of long Stella Black MD Onset: 2015 head of biceps, right arm, subsequent encounter Neck pain Stella Black MD Onset: 02/15/2016 Localized, primary osteoarthritis of the Declan Mac MD Onset: 07/10/2017 hand Essential hypertension Diomedes Cavanaugh M.D. Onset: 07/18/2017 Localized, primary osteoarthritis Stella Black MD Onset: 10/05/2017 Knee joint effusion Stella Black MD Onset: 10/05/2017 Current tear of medial cartilage AND/OR Stella Black MD Onset: 11/06/2017 meniscus of knee Loose body in knee Stella Black MD Onset: 03/12/2018 Arthroplasty of knee Courtney Prieto M.D. Onset: 08/16/2018 Social History Type Date Description Comments Sex Unknown ETOH Use Rarely consumes alcohol Tobacco Use Start: Unknown Patient has never no change smoked Recreational Drug Use Denies Drug Use Smoking Status Reviewed: 02/14/19 Patient has never no change smoked Exercise Type/Frequency Exercises regularly Every other day - Walks on treadmill for an hour Allergies, Adverse Reactions, Alerts Active Allergies Reaction Severity Comments Date Demerol NAUSEA Moderate 05/18/2009 Medications Active Medications SIG Qnty Indications Ordering Date Provider Wrist Splint use nightly to help 2units Winston Parra, 02/11/2019 Misc with right lateral M.D. epicondylitis Elbow Support apply daily to help 2units Winston Parra, 02/11/2019 W/Encircling Support medial elbow M.D. Strap/Neoprene/Mediu tendonitis as m needed, right Misc Buprenorphine apply 1 patch per 4units G89.4 Radha Varsharri, 07/18/2018 week N.P. 7.5mcg/HR Patches Weekly Hydrocodone 1 by mouth every 6 120tabs Radha Alexandran, 07/15/2018 Bitartrate/Acetamino hours as needed pain N.P. phen 7.5-300mg Tablets Ondansetron HCL one by mouth every 8 30tabs Radha Varn, 06/18/2018 4mg hours as needed for N.P. Tablets nausea Fluoxetine HCL 1 by mouth every day 90caps F41.9 Radha Varsharri, 03/13/2018 20mg N.P. Capsules Thumb Splint/Left please use at night 1units Winston Parra, 04/18/2017 Medium and daily as needed M.D. Misc to help de quervains tendonitis Lisinopril 1 by mouth every day 90tabs Darrin S. 03/29/2017 5mg Galo, DO Tablets FACC Robaxin take one 30tabs M54.6 Winston Parra, 12/25/2016 500mg Tablets tablet/capsule by M.DSarah mouth at bedtime. as needed for pain, avoid other muscular relaxants Nabumetone take one 180tabs M54.2 Winston Parra, 08/14/2016 750mg capsule/tablet daily M.D. Tablets by mouth twice daily as needed for pain, avoid with other nsaids, stop other nsaids- Voltaren apply 2 grams twice 200gm M54.2 Winston Parra, 01/20/2016 1% Gel daily as needed for M.D. pain to the hands Crestor 1 by mouth every day 90tabs I25.118 Diomedes DSarah 01/14/2016 5mg Tablets Brand, M.D. Lidocaine apply externally as 35.440gm Joseph Lucas NP 10/28/2015 5% Ointment needed once daily Esomeprazole take one capsule by 90caps Radha Grimaldo, 09/22/2014 Magnesium mouth every day N.P. 40mg Capsules DR Mcdonald one by mouth three 30tabs Radha Grimaldo, 07/16/2012 0.25mg times a day as N.P. Tablets needed for anxiety TENS Unit Tens unit with low 1units Rosio Lawton, 11/07/2011 back belt and [place], FACP electrodes. Hyoscyamine Sulfate 1 tab sublingual 60tabs Radha Grimaldo, 05/25/2010 every day as needed N.P. 0.125mg Tablets Dispers Zovirax apply as needed 30gm Joseph Lucas NP 09/30/2009 5% Ointment Multivitamins 1 by mouth every day Unknown Capsules Vitamin B Complex 1 by mouth every day Unknown Tablets Vitamin D3 Super 1 by mouth every day 90tabs Unknown Strength 2000Unit Tablets CBD Oil Unknown History Medications Paraffin use daily for hand 500gm Winston Parra, 08/30/2018 - Wax stretching and M.D. 10/11/2018 osteoarthritis m72 Gabapentin 1 tab by mouth twice a 180caps Courtney Prieto, 08/15/2018 - 300mg day M.D. 11/19/2018 Capsules Medications Administered in Office Medication SIG Qnty Indications Ordering Provider Date Injection Hyaluronan Or Stella Black MD 05/10/2018 Derivative, Euflexxa Per Dose Injection Injection Hyaluronan Or Stella Black MD 05/03/2018 Derivative, Euflexxa Per Dose Injection Injection Hyaluronan Or Stella Black MD 04/26/2018 Derivative, Euflexxa Per Dose Injection Hyaluronan or derivative, Stella Black MD 10/05/2017 monovisc, for intra-articular injectio Injection Triamcinolone (Kenalog) Stlela Black MD 09/14/2017 Injection Triamcinolone (Kenalog) Winston Parra M.D. 04/18/2017 Injection Triamcinolone (Kenalog) Stella Black MD 12/14/2016 Injection Triamcinolone (Kenalog) Stella Black MD 12/14/2016 Injection Triamcinolone (Kenalog) Stella Black MD 02/15/2016 Injection Technetium TC 99M TetrofosminDiomedes M.D. 01/14/2014 Per Unit Dose Up To 40 Millicuries Injection Influenza Virus Vaccine Nurse Visit [place] 12/26/2013 Injection Technetium TC 99M TetrofosminDiomedes M.D. 09/25/2012 Per Unit Dose Up To 40 Millicuries Injection Immunizations CPT Code Status Date Vaccine Reaction Lot # [id number] Given 01/01/2019 Influenza Virus Vaccine, Quadrivalent, Split, Preservative Free 12798 Given 01/02/2018 Zoster (Shingles) Vaccine (HZV), Recombinant, Subunit, Adjuvanted 61163 Given 01/02/2018 Influenza Virus Vaccine, Quadrivalent, Split, Preservative Free 81510 Given 10/17/2017 Zoster (Shingles) Vaccine (HZV), Recombinant, Subunit, Adjuvanted 73277 Given 01/20/2016 Pneumococcal Conjugate Vaccine no reaction noted [id number] Valent For Intramuscular Use 15720 Given 12/09/2015 Influenza Virus Vaccine, Quadrivalent, Split, Preservative Free 18608 Given 12/26/2013 Influenza Virus Vaccine, Quadrivalent, Split, Preservative Free Q2038 Given 01/10/2012 Fluzone Vaccine [id number] 03510 Given 10/29/2008 Tdap - Tetanus/Diptheria/Acellular Pertussis 42003 Given 02/11/2007 Influenza Virus 3Yrs & Over 80510 Given 02/11/2007 Influenza Virus 3Yrs & Over 46502 Given 02/12/2006 Influenza Virus 3Yrs & Over Vital Signs Date Vital Result Comment 02/14/2019 9:32am Height 65.5 inches 5'5.50" Weight 203.00 lb Heart Rate 71 /min Respiratory Rate 16 /min Body Temperature 97.2 F Pain Level 4 BMI (Body Mass Index) 33.3 kg/m2 02/11/2019 2:31pm Height 65.5 inches 5'5.50" Weight 198.00 lb Heart Rate 64 /min BP Systolic Sitting 120 mmHg BP Diastolic Sitting 78 mmHg Pain Level 5 O2 % BldC Oximetry 98 % BMI (Body Mass Index) 32.4 kg/m2 Results Description No Information Available Procedures Date Code Description Status 11/18/2018 [id number] Mammogram Completed 07/02/2017 [id number] Mammogram Completed 12/16/2014 [id number] Mammogram Completed 09/15/2013 [id number] Colonoscopy Completed 11/13/2012 [id number] Mammogram Completed 05/31/2010 [id number] Mammogram Completed 11/03/2008 [id number] Mammogram Completed 05/23/2007 [id number] Colonoscopy Completed 05/12/2005 [id number] Mammogram Completed 04/07/2005 [id number] Mammogram Completed Medical Devices Description No Information Available Encounters Type Date Location Provider Dx Diagnosis Office Visit 02/11/2019 Rheumatology Winston Parra M77.11 Lateral 2:20p [facility] epicondylitis, right elbow M19.049 Primary osteoarthritis, unspecified hand G89.4 Chronic pain syndrome M79.7 Fibromyalgia Office Visit 11/27/2018 8:30a [facility] Courtney Prieto G89.4 Chronic pain at [facility].DSarah syndrome Z96.651 Presence of right artificial knee joint M25.561 Pain in right knee Z47.1 Aftercare following joint replacement surgery Office Visit 10/22/2018 [facility] Radha Grimaldo G89.4 Chronic pain 10:20a Medicine - [facility] N.P. syndrome Office Visit 08/30/2018 Rheumatology Gifty Gold9.049 Primary 12:00p [facility] osteoarthritis, unspecified hand R20.8 Other disturbances of skin sensation M79.643 Pain in unspecified hand Assessments Date Code Description Provider 02/11/2019 M77.11 Lateral epicondylitis, right elbow Winston Parra M.D. 02/11/2019 M19.049 Primary osteoarthritis, unspecified hand Winston Parra M.D. 02/11/2019 G89.4 Chronic pain syndrome Winston Parra M.D. 02/11/2019 M79.7 Fibromyalgia Winston Parra M.D. 11/27/2018 G89.4 Chronic pain syndrome Courtney Prieto M.D. 11/27/2018 Z96.651 Presence of right artificial knee joint Courtney Prieto M.D. 11/27/2018 M25.561 Pain in right knee Courtney Prieto M.D. 11/27/2018 Z47.1 Aftercare following joint replacement surgery Courtney Prieto M.D. 10/22/2018 G89.4 Chronic pain syndrome Radha Grimaldo N.PSarah 10/21/2018 Z47.1 Aftercare following joint replacement surgery Courtney Prieto M.D. 10/21/2018 Z96.651 Presence of right artificial knee joint Courtney Prieot M.D. 10/21/2018 M25.561 Pain in right knee Courtney Prieto M.D. 09/18/2018 Z47.1 Aftercare following joint replacement surgery Courtney Prieto M.D. 09/18/2018 Z96.651 Presence of right artificial knee joint Courtney Prieto M.D. 09/18/2018 M25.561 Pain in right knee Courtney Prieto M.D. 09/18/2018 M25.461 Effusion, right knee Courtney Prieto M.D. 08/30/2018 M19.049 Primary osteoarthritis, unspecified hand Winston Parra M.D. 08/30/2018 R20.8 Other disturbances of skin sensation Winston Parra M.D. 08/30/2018 M79.643 Pain in unspecified hand Winston Parra M.D. 08/21/2018 M25.561 Pain in right knee Courtney Prieto M.D. 08/21/2018 Z96.651 Presence of right artificial knee joint Courtney Prieto M.D. 08/21/2018 M25.461 Effusion, right knee Courtney Prieto M.D. 08/21/2018 Z47.1 Aftercare following joint replacement surgery Courtney Prieto M.D. 08/16/2018 M25.561 Pain in right knee Courtney Prieto M.D. 08/16/2018 M25.461 Effusion, right knee Courtney Prieto M.D. 08/16/2018 Z96.651 Presence of right artificial knee joint Courtney Prieto M.D. 08/16/2018 Z47.1 Aftercare following joint replacement surgery Courtney Prieto M.D. Plan of Treatment Future Appointment(s):04/24/2019 10:00 am - Radha Grimaldo N.P. at [facility] Internal Medicine - [facility] Functional Status Description No Information Available Mental Status Description No Information Available Referrals Refer to Dr Reason for Referral Status Appt Date Buster Pelaez MD Please evaluate patient with bruising over the Sent thumb [address] [place] [address], [place] [address] [phone]
--- OUTSIDE RECORDS SUMMARY | 2019-03-04 10:43 | XMS REPORT | Continuity of Care Document ---
:1955 External Reference #:[id number] Author Name Winston Parra M.D. (transmitted by agent of provider Kelly Lundberg) Address [address] [place] [id number] Care Team Providers Name Role Phone Dipti Pacheco MD - Internal Care Team Information Set Off Blocker [phone] Medicine Marilu Mckinney DPM - Design Quality Engineer Care Team Information Set Off Blocker Problems Active Problems Provider Date Coronary arteriosclerosis [...] Onset: 02/15/2016 Localized, primary osteoarthritis of the Dcelan Mac MD Onset: 07/10/2017 hand Essential hypertension [...] Use Denies Drug Use Smoking Status Reviewed: 02/11/19 Patient has never no change smoked Exercise [...] apply 1 patch per 4units G89.4 Radha Re, 07/18/2018 week N.P. 7.5mcg/HR Patches Weekly Hydrocodone 1 by mouth every 6 120tabs Radha Grimaldo, 07/15/2018 Bitartrate/Acetamino hours as needed pain N.P. phen 7.5-300mg Tablets Ondansetron HCL one by mouth every 8 30tabs Radha Varsharri, 06/18/2018 4mg hours as needed for N.P. Tablets nausea Fluoxetine HCL 1 by mouth every day 90caps F41.9 Radha Re, 03/13/2018 20mg N.P. Capsules Thumb Splint/Left please [...] by mouth every day 90tabs I25.118 Diomedes D. 01/14/2016 5mg Tablets Brand, M.Mitzi Lidocaine apply externally as 35.440gm Joseph Lucas NP 10/28/2015 5% Ointment needed once daily Esomeprazole take one capsule by 90caps Radha Grimaldo, 09/22/2014 Magnesium mouth every day N.P. 40mg Capsules Alpzoradha one by mouth three 30tabs Radha Grimaldo, [...] 08/15/2018 - 300mg day M.D. 11/19/2018 Capsules Oxycodone HCL 1 by mouth every 4 180tabs Radha Grimaldo, 08/12/2018 - 10mg hours as needed pain N.P. 11/21/2018 Tablets Medications Administered in Office Medication SIG Qnty Indications Ordering Provider Date Injection Hyaluronan Or Stella Black MD 05/10/2018 Derivative, Euflexxa Per Dose Injection Injection Hyaluronan Or Stella Black MD 05/03/2018 Derivative, Euflexxa Per Dose Injection Injection Hyaluronan Or Stella Black MD 04/26/2018 Derivative, Euflexxa Per Dose Injection Hyaluronan or Stella diaz MD 10/05/2017 monovisc, for intra-articular injectio Injection Triamcinolone (Kenalog) Stella Black MD 09/14/2017 Injection Triamcinolone (Kenalog) Winston aPrra M.D. 04/18/2017 Injection Triamcinolone (Kenalog) Stella Black MD 12/14/2016 Injection Triamcinolone (Kenalog) Stella Black MD 12/14/2016 Injection Triamcinolone (Kenalog) Stella Black MD 02/15/2016 Injection Technetium TC 99M TetrofosminDiomedes M.D. 01/14/2014 Per Unit Dose Up To 40 Millicuries Injection Influenza Virus Vaccine Nurse Visit [place] 12/26/2013 Injection Technetium TC 99M TetrofosminDiomedes M.D. 09/25/2012 Per Unit Dose Up To 40 Millicuries Injection Immunizations CPT Code Status Date Vaccine Reaction Lot # [id number] Given 01/01/2019 Influenza Virus Vaccine, Quadrivalent, Split, Preservative Free 56682 Given 01/02/2018 Zoster (Shingles) Vaccine (HZV), Recombinant, Subunit, Adjuvanted 30534 Given 01/02/2018 Influenza Virus Vaccine, Quadrivalent, Split, Preservative Free 34129 Given 10/17/2017 Zoster (Shingles) Vaccine (HZV), Recombinant, Subunit, Adjuvanted 98010 Given 01/20/2016 Pneumococcal Conjugate Vaccine no reaction noted [id number] Valent For Intramuscular Use 27258 Given 12/09/2015 Influenza Virus Vaccine, Quadrivalent, Split, Preservative Free 03161 Given 12/26/2013 Influenza Virus Vaccine, Quadrivalent, Split, Preservative Free Q2038 Given 01/10/2012 Fluzone Vaccine [id number] 26930 Given 10/29/2008 Tdap - Tetanus/Diptheria/Acellular Pertussis 22485 Given 02/11/2007 Influenza Virus 3Yrs & Over 96397 Given 02/11/2007 Influenza Virus 3Yrs & Over 27054 Given 02/12/2006 Influenza Virus 3Yrs & Over Vital Signs Date Vital Result Comment 02/11/2019 2:31pm Height 65.5 inches 5'5.50" Weight 198.00 lb Heart Rate 64 /min BP Systolic Sitting 120 mmHg BP Diastolic Sitting 78 mmHg Pain Level 5 O2 % BldC Oximetry 98 % BMI (Body Mass Index) 32.4 kg/m2 11/27/2018 8:42am Height 65.5 inches 5'5.50" Weight 200.00 lb Heart Rate 60 /min BP Systolic Sitting 98 mmHg BP Diastolic Sitting 58 mmHg Pain Level 2 BMI (Body Mass Index) 32.8 kg/m2 Results Description No Information Available Procedures Date Code Description Status 11/18/2018 [id number] Mammogram Completed 07/02/2017 [id number] Mammogram Completed 12/16/2014 [id number] Mammogram Completed 09/15/2013 [id number] Colonoscopy Completed 11/13/2012 [id number] Mammogram Completed 05/31/2010 [id number] Mammogram Completed 11/03/2008 [id number] Mammogram Completed 05/23/2007 [id number] Colonoscopy Completed 05/12/2005 [id number] Mammogram Completed 04/07/2005 [id number] Mammogram Completed Medical Devices Description No Information Available Encounters Type Date Location Provider Dx Diagnosis Office Visit 11/27/2018 [facility] Courtney Prieto G89.4 Chronic pain 8:30a at [place] syndrome Z96.651 Presence of right artificial knee joint M25.561 Pain in right knee Z47.1 Aftercare following joint replacement surgery Office Visit 10/22/2018 [facility] Nicole Grimaldo G89.4 Chronic pain 10:20a Medicine - [facility] N.P. syndrome Office Visit 08/30/2018 Rheumatology Winston Parra, M19.049 Primary 12:00p [facility] osteoarthritis, [...] right artificial knee joint Courtney Prieto M.D. 10/21/2018 M25.561 Pain in right knee [...] Z47.1 Aftercare following joint replacement surgery Courtney Prieot M.D. 08/16/2018 M25.561 Pain in right knee Courtney Prieto M.D. 08/16/2018 M25.461 Effusion, right knee Courtney Prieto M.D. 08/16/2018 Z96.651 Presence of right artificial knee joint Courtney Prieto M.D. 08/16/2018 Z47.1 Aftercare following joint replacement surgery Courtney Prieot M.D. Plan of Treatment Future Appointment(s):02/12/2019 10:00 am - [facility] - [facility] - Winston Parra M.D.M77.11 Lateral epicondylitis, right nekrcI95.049 Primary osteoarthritis, unspecified handG89.4 Chronic pain ftzizhviE01.7 FibromyalgiaFollow up:FOllow up in 3 to 5 months or sooner if needed Functional Status Description No Information Available Mental Status Description No Information Available Referrals Refer to Reason for Referral Status Appt Date Buster Pelaez MD Please evaluate patient with bruising over the Sent [address], [place] [address] [phone]
[2019-03-04] MEDS ORDERED: LORazepam INJ* 2 MG/ML 1 ML VIAL IV PUSH ONE (10:44)
[2019-03-04] MEDS ORDERED: Lorazepam PYXIS KEY PRN (10:44)
--- NOTE | 2019-03-04 10:46 | ED ---
GI/ HPI - HPI Summary HPI Summary: Patient is a 63 y/o F presenting to the ED for a chief complaint of nausea and vomiting that began 10 days ago. Patient was sent to the ED by her PCP to have an endoscopy. Patient also reports dizziness, generalized weakness, intermittent chills, and weight loss of 10 pounds. She states the intermittent chills could be due to menopause. She has been unable to "keep anything down including fluids", but in the last day, she was able to eat baby food, apple sauce, and a smoothie without having an episode of vomiting. She describes her vomiting as mucous and water. Her last bowel movement was one day ago which she describes as "small stones." She currently feels anxious about being in the ED. Patient denies any abdominal pain or myalgia at the current time. She denies any aggravating or alleviating factors. PMHx is significant for GERD, Barretts esophagus, esophageal spasm, hiatal hernia, fibromyalgia, osteoarthritis, cardiac disease, and hypertension. PSHx is significant for cardiac bypass, knee replacement 6 months ago, and vertical gastroplasty in 1997. She states she has had esophageal and abdominal problems since her vertical gastroplasty surgery. Patient takes Nexium 40 mg daily for GERD. Patient denies tobacco use, but admits occasional alcohol and marijuana use. Patient is retired. She did not take her medications on 03/04/19. Medications reviewed. Allergies noted. - History of Current Complaint Chief Complaint: EDAbdPain Time Seen by Provider: 03/04/19 10:33 Stated Complaint: GI DISTRESS PER PT Hx Obtained From: Patient Onset/Duration: Started Days Ago, Atraumatic, Still Present Timing: Intermittent Severity: Moderate Current Severity: Moderate Pain Intensity: 0 Associated Signs and Symptoms: Positive: Dizziness, Weakness - Generalized, Nausea, Vomiting, Weight Loss - 10 pounds, Chills - Intermittent, Other: - Positive anxiety; negative myalgia. Negative: Abdominal Pain Aggravating Factor(s): Nothing Alleviating Factor(s): Nothing - Additional Pertinent History Primary Care Physician: [id number] - Allergy/Home Medications Allergies/Adverse Reactions: Allergies Allergy/AdvReac Type Severity Reaction Status Date / Time meperidine AdvReac Intermediate Nausea Verified 03/04/19 10:28 Home Medications: Home Medications Cannabidiol (CBD) Extract (NF) [Epidiolex (NF)] 100 mg PO DAILY 03/04/19 [ History Confirmed 03/04/19] Diclofenac 1% GEL (NF) [Voltaren 1% GEL (NF)] 1 applic TOPICAL BID PRN 03/04/19 [History Confirmed 03/04/19] Hydrocodone/Acetaminophen [Hydrocodone-Acetamin 7.5-300] 1 each PO Q6H PRN 03/04 [History Confirmed 03/04/19] Methocarbamol TAB* [Robaxin 500 MG TAB*] 500 mg PO BEDTIME PRN 03/04/19 [ History Confirmed 03/04/19] PMH/Surg Hx/FS Hx/Imm Hx Previously Healthy: Yes Endocrine/Hematology History: Reports: Hx Anemia - hx of Denies: Hx Diabetes Cardiovascular History: Reports: Hx Coronary Artery Disease - 07/2012 QUADRUPLE CORONARY BYPASS, Hx Hypertension - NOT TAKING MEDS AT THIS TIME Denies: Hx Pacemaker/ICD Respiratory History: Reports: Hx Sleep Apnea Denies: Hx Asthma GI History: Reports: Hx Gastroesophageal Reflux Disease - CONTROL WITH MEDS, Hx Hiatal Hernia, Other GI Disorders - esophageal spasms History: Reports: Hx Kidney Stones - HX OF Denies: Hx Dialysis, Hx Renal Disease Musculoskeletal History: Reports: Hx Arthritis, Hx Back Problems, Hx Bursitis - hx of, Hx Fibromyalgia, Hx Tendonitis - hx of, Other Musculoskeletal History - FIBROMYALGIA Sensory History: Reports: Hx Contacts or Glasses Denies: Hx Legally Blind, Hx Deafness, Hx Hearing Aid Opthamlomology History: Reports: Hx Contacts or Glasses Denies: Hx Legally Blind EENT History: Denies: Hx Deafness Neurological History: Reports: Hx Nerve Disease - fibromyalgia, Other Neuro Impairments/Disorders - FIBROMYALGIA Psychiatric History: Reports: Hx Anxiety - CONTROL WITH MEDS, Hx Depression Denies: Hx Panic Disorder - Cancer History Hx Chemotherapy: No - Surgical History Surgical History: Yes Surgery Procedure, Year, and Place: QUADRULPE BYPASS-open heart surgery July 2012;. csection;. LOW BACK-herniated disc ;. stomach stapling 1987;. UVULA EXCISION FOR SLEEP APNEA. LASER - EYE Hx Anesthesia Reactions: No Infectious Disease History: No Infectious Disease History: Reports: History Other Infectious Disease - genital herpes Denies: Traveled Outside the [place] in Last 30 Days - Family History Known Family History: Negative: Diabetes - Social History Occupation: Retired Lives: With Family Alcohol Use: Rare Alcohol Amount: 1 drink per week Hx Substance Use: Yes Substance Use Type: Reports: Marijuana Hx Tobacco Use: No Smoking Status (MU): Never Smoked Tobacco Review of Systems Positive: Chills - Intermittent, Other - Positive weight loss of 10 pounds Positive: Vomiting, Nausea. Negative: Abdominal Pain Negative: Myalgia Neurological: Other - Positive dizziness Positive: Weakness - Generalized Positive: Anxious All Other Systems Reviewed And Are Negative: Yes Physical Exam - Summary Physical Exam Summary: Constitutional: Well-developed, Well-nourished, Alert. (-) Distressed Skin: Warm, Dry HENT: Normocephalic; Atraumatic. Dry oral mucosa. Eyes: Conjunctiva normal Neck: Musculoskeletal ROM normal neck. (-) JVD, (-) Stridor, (-) Tracheal deviation Cardio: Rhythm regular, rate normal, Heart sounds normal; Intact distal pulses; Radial pulses are 2+ and symmetric. (-) Murmur Pulmonary/Chest wall: Effort normal. (-) Respiratory distress, (-) Wheezes, (-) Rales Abd: Soft, (-) Distension, (-) Guarding, (-) Rebound. Mild diffuse tenderness. Musculoskeletal: (-) Edema Lymph: (-) Cervical adenopathy Neuro: Alert, Oriented x3 Psych: Mood and affect Normal Triage Information Reviewed: Yes Vital Signs On Initial Exam: Initial Vitals Temp Pulse Resp BP Pulse Ox 98.0 F 59 16 153/78 99 03/04/19 10:24 03/04/19 10:24 03/04/19 10:24 03/04/19 10:24 03/04/19 10:24 Vital Signs Reviewed: Yes Procedures - Sedation Patient Received Moderate/Deep Sedation with Procedure: No Diagnostics - Vital Signs Vital Signs Temp Pulse Resp BP Pulse Ox 03/04/19 10:24 98.0 F 59 16 153/78 99 - Laboratory Result Diagrams: 03/04/19 10:58 03/04/19 10:58 Lab Statement: Any lab studies that have been ordered have been reviewed, and results considered in the medical decision making process. - Radiology Abdomen X-ray Radiology Interpretation Completed By: Radiologist Summary of Radiographic Findings: Abdomen X-ray IMPRESSION: 1. NO EVIDENCE FOR OBSTRUCTION. 2. MODERATE TO LARGE AMOUNT OF RETAINED STOOL. Reviewed by Dr. Streeter. GIGU Course/Dx - Course Course Of Treatment: Patient is here with 10 days of difficulty following by mouth and 10 pounds of weight loss. Patient was sent in by GI. Patient laboratory performed which grossly unremarkable. Patient to [facility] which showed evidence of obstruction. Patient is admitted to the hospitalist for possible EGD today or tomorrow. - Diagnoses Provider Diagnoses: Diffuse abdominal pain, Acid reflux, Weight loss, Vomiting, Esophageal spasm - Physician Notifications Discussed Care Of Patient With: Syed Zhou - At 12:11, Dr. Zhou will try to see the patient today and recommends admission. At 12:14, Dr. Abdi agrees to admit the patient to [facility] with a diagnosis of weight loss, vomiting, esophageal spasms, acid reflux, and diffuse abdominal pain. Time Discussed With Above Provider: 12:11 Instructed by Provider To: Admit As Inpatient Discharge ED - Sign-Out/Discharge Documenting (check all that apply): Patient Departure - Admit - Discharge Plan Condition: Stable Disposition: ADMITTED TO [facility] - Billing Disposition and Condition Condition: STABLE Disposition: Admitted to [facility] - Attestation Statements Document Initiated by Scribe: Yes Documenting Scribe: Katie Dobbins Provider For Whom Scribe is Documenting (Include Credential): Jose Streeter MD Scribe Attestation: Katie Cedillo, scribed for Jose Streeter MD on 03/04/19 at 1522. Scribe Documentation Reviewed: Yes Provider Attestation: The documentation as recorded by the Katie bender accurately reflects the service I personally performed and the decisions made by , Jose Streeter MD Status of Scribe Document: Viewed
[2019-03-04] MEDS ORDERED: Lorazepam PYXIS KEY ONE (10:55)
[2019-03-04 11:16] LABS: ABS Eosinophils 0.1 10^3/ul (0-0.6); ABS Lymphocytes 1.9 10^3/ul (1.0-4.8); ABS Monocytes 0.6 10^3/ul (0-0.8); ABS Neutrophils 2.4 10^3/ul (1.5-7.7); Eosinophil % 1.3 %; Hematocrit 37 % (35-47); Hemoglobin 13.2 g/dL (12.0-16.0); Lymphocyte % 37.9 %; Mean Corpuscular HGB Conc 35 g/dL (31-36); Mean Corpuscular Hemoglobin 29 pg (27-31); Mean Corpuscular Volume 83 fL (80-97); Nucleated Red Blood Cells % 0.1; Platelet Count 225 10^3/uL (150-450); Red Cell Distribution Width 14 % (10-15); White Blood Count 4.9 10^3/uL (3.5-10.8)
[2019-03-04 11:45] LABS: Albumin 4.1 g/dL (3.2-5.2); Albumin/Globulin Ratio 1.6 (1-3); Calcium 9.4 mg/dL (8.6-10.3); EGFR African American 101.3 (>60); EGFR Non-African American 83.7 (>60); Globulin 2.5 g/dL (2-4); Magnesium 1.8 mg/dL (1.9-2.7); Potassium 4.1 mmol/L (3.5-5.0); Total Bilirubin 0.4 mg/dL (0.2-1.0); Total Protein 6.6 g/dL (6.4-8.9)
[2019-03-04] MEDS ORDERED: ALPRAZolam TAB* 0.25 MG PO PRN (13:32)
[2019-03-04] MEDS ORDERED: Hyoscyamine TAB* 0.125 MG PO PRN (13:32)
[2019-03-04] MEDS ORDERED: Ondansetron INJ* 2 MG/ML VIAL IV PRN (13:34)
[2019-03-04] MEDS ORDERED: Pantoprazole IV* 40 MG IV SCH (14:00)
[2019-03-04] MEDS ORDERED: Magnesium Sulfate 2 GM IV* 2 GM/50 ML BAG IVPB ONE (14:04)
[2019-03-04] MEDS ORDERED: Sodium Phosphate ADULT ENEMA* 118 ml bottle PR PRN (15:11)
[2019-03-04] MEDS ORDERED: Bisacodyl SUPP* 10 MG SUPP PR PRN (15:11)
--- NOTE | 2019-03-04 15:16 | HP ---
CC: Dr. Dipti Pacheco; Radha Grimaldo NP; Dr. Pattie Huerta * HISTORY AND PHYSICAL: DATE OF ADMISSION: 03/04/19 PRIMARY CARE PROVIDERS: Dr. Dipti Pacheco and Radha Grimaldo NP CRAWLER CRANE OPERATOR: Dr. Pattie Huerta. ATTENDING PHYSICIAN: Dr. Susy Abdi * (dictated by ISAI Mota). CHIEF COMPLAINT: 1. Nausea, vomiting, weight loss x10 days. 2. Dehydration, weakness, dizziness. HISTORY OF PRESENT ILLNESS: Ms. Winters is a 63-year-old female with past medical history of esophageal spasms, GERD, hiatal hernia, Byers's esophagus, coronary artery disease, multiple gastric surgeries, who presented to the ER today with approximately 10 days of nausea, vomiting and subsequent 10-pound weight loss. The patient states last Sunday her [id number] was sent to the ER, which led to anxiety/stress and the patient states she felt "sick to her stomach." Once her family emergency had resolved, she continued to have feelings of nausea and she began vomiting. She states that she vomits " anything I try to eat." For the last 10 days, she has had constant nausea that is worse with eating or drinking and vomiting every time she eats or drinks. She feels that she has had some improvement starting last night when she was able to tolerate baby food, ice cream and scrambled eggs without vomiting. This morning, she tolerated baby food, applesauce, approximately 6 to 8 ounces of a Horan's smoothie and 1 bite of an Maori muffin without vomiting. Today, she followed up with Dr. Huerta, who sent her to the ER with concerns for dehydration, possible blockage and recommended an EGD. The patient denies dysphagia, odynophagia, hematemesis. She does admit to a 10 pound weight loss in the last 10 days, dizziness, lightheadedness, some mild confusion, and weakness. She also complains of subjective fevers, chills, but denies night sweats. Her last EGD was in 2016. Her last colonoscopy was in 2013 and she is due for one this year. She is unsure when her last bowel movement was, although she does recall that it was formed, dark brown in color, without melena or juan blood. In the ER, the patient received a full workup. CBC was unremarkable. Chem panel had revealed an elevated BUN/creatinine ratio, hypomagnesemia. Abdominal x-ray reveals no obstruction with moderate to large amount of retained stool. The patient was given 1 L of normal saline fluid bolus, 0.5 lorazepam IV. The hospitalist team was asked to evaluate the patient for admission. PAST MEDICAL HISTORY: 1. Coronary artery disease, status post 4-vessel CABG. 2. Hypertension. 3. Hyperlipidemia. 4. GERD, Byers's esophagus. 5. Hiatal hernia. 6. Esophageal spasms. 7. Chronic pain - fibromyalgia, osteoarthritis. 8. Obesity. 9. Anxiety/depression. PAST SURGICAL HISTORY: Four-vessel CABG in 2012, right knee arthroscopy and subsequent arthroplasty, right shoulder arthroscopy, lumbar diskectomy, uvuloplasty, , vertical-banded gastroplasty, abdominoplasty. HOME MEDICATIONS: 1. Acyclovir ointment 1 application topically 6 times daily p.r.n. herpes outbreak. 2. Alprazolam 0.25 mg p.o. t.i.d. p.r.n. anxiety. 3. Buprenorphine 7.5 mcg transdermal patch q.7 days. 4. Cannabidiol extract 100 mg p.o. daily. 5. Cholecalciferol 2000 units p.o. daily. 6. Diclofenac 1 application topically b.i.d. p.r.n. pain. 7. Esomeprazole 40 mg p.o. daily. 8. Fluoxetine 20 mg p.o. daily. 9. Hydrocodone/acetaminophen 7.5/300 one tab p.o. q.6 hours p.r.n. moderate pain. 10. Hyoscyamine 0.125 mg p.o. daily p.r.n. muscle spasm. 11. Lidocaine 5% topical ointment 1 application daily p.r.n. joint or muscle pain. 12. Lisinopril 5 mg p.o. daily. 13. Methocarbamol 500 mg p.o. at bedtime p.r.n. pain. 14. Multivitamin 1 tab p.o. daily. 15. Nabumetone 750 mg p.o. b.i.d. p.r.n. pain. 16. Ondansetron 4 mg p.o. q.8 hours p.r.n. nausea. 17. Rosuvastatin 5 mg p.o. daily. 18. Vitamin B complex 1 cap p.o. daily. DRUG ALLERGIES: MEPERIDINE, nausea. FAMILY HISTORY: Paternal grandmother, Alzheimer's. Maternal grandmother at a young age from heart disease. Father at the age of 52 from colorectal cancer. Mother is alive and has a history of bladder cancer, hypertension, chronic pain, CKD. No family history of CVA or diabetes mellitus. SOCIAL HISTORY: The patient denies current or former use of tobacco. She drinks rarely, less than weekly. 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 She is , with 1 biological son, 2 stepchildren. In the event that she is unable to make her own medical decisions, she has appointed her and healthcare proxy, Felix Winters, to be her surrogate decision maker. REVIEW OF SYSTEMS: A 14-point review of systems has been performed and all the pertinent positives and negatives are in the HPI. All other systems are negative. PHYSICAL EXAMINATION GENERAL: Ms. Winters is a well-developed, well-nourished, obese, middle-aged white woman, who is sitting up in bed. She appears to be somewhat fatigued, but in no acute distress. She is appropriate, cooperative. VITAL SIGNS: Temperature 98.0 temporal, heart rate 73, respiratory rate 16, oxygen saturation 96% on room air, blood pressure 128/63. HEENT: PERRL. EOMI. Nonicteric sclerae. Hearing is grossly intact. Oral mucous membranes are mildly dry. Unable to visualize posterior pharynx. Tongue is at midline. PULMONARY: Symmetrical chest expansion without use of accessory muscles. Clear to auscultation bilaterally without rhonchi, wheezes, or rales. No digital clubbing or cyanosis. CARDIOVASCULAR: Regular rate and rhythm with S1, S2 present without murmurs, rubs, clicks, or gallops. There is no JVD. There is no peripheral edema. ABDOMEN: Obese. Bowel sounds hypoactive throughout. There is reported mild discomfort to palpation without guarding or rebound tenderness. MUSCULOSKELETAL: Full range of motion without pain or deformities. NEURO: The patient is awake. She is alert and oriented x3. Cranial nerves are grossly intact. She is able to move all of her extremities with 5/5 bilateral upper and lower extremity strength. Inserter Promotional Item strength is equal. DIAGNOSTIC STUDIES/LAB DATA: CBC unremarkable. Elevated BUN/creatinine ratio of 31.0, magnesium 1.8. Lipase 14. Abdomen x-ray, impression: No evidence for obstruction. Moderate to large amount of retained stool. ASSESSMENT AND PLAN: Ms. Winters is a 63-year-old female with past medical history of hiatal hernia, gastroesophageal reflux disease, Byers's esophagus, esophageal spasms, coronary artery disease, hypertension and a surgical history of gastroplasty, abdominoplasty, who presented to the ER today with 10 days of nausea, vomiting, 10 pound weight loss. She presented at the suggestion of her in home tutor. She will be admitted for: 1. Nausea, vomiting, 10 pound weight loss. At this point, there is concern that there may be an obstruction. Gastroenterology recommends EGD and IV fluids at this time. GI consult has been ordered. They are aware of the patient and will make further recommendations once she is assessed. For now, the patient will be n.p.o. except for medications. Oral care will be provided. IV fluids will be continued. Nausea control with IV Zofran and GI protection with IV Protonix will be ordered. 2. Constipation. The patient is unsure when her last bowel movement was. X- ray imaging reveals that the patient has some constipation. Recommend bowel regimen once the above issue has been assessed and corrected. 3. Hypertension. Continue lisinopril. 4. Hyperlipidemia. Continue rosuvastatin. 5. Chronic pain. Continue buprenorphine patch. We will hold muscle relaxers, NSAIDs, and hydrocodone/acetaminophen in the setting of inability to tolerate p.o. intake. We will restart as necessary. 6. Obesity, BMI 31.3. 7. Anxiety/depression. Continue alprazolam, fluoxetine. 8. Gastroesophageal reflux disease, Byers's esophagus. Change esomeprazole to IV Protonix. 9. DVT prophylaxis: According to DVT Risk Assessment, the patient scores 3, placing her at high risk. At this time, we will hold Lovenox until she is assessed by GI. 10. Code status: Full code. TIME SPENT: Approximately 60 minutes was spent on this admission, greater than half that time was spent with the patient and her obtaining history, performing physical, and reviewing the plan of care. The case has been reviewed with my attending, Dr. Abdi, who is in agreement with the plan of care. ALEXIS TORIBIO, ISAI [id number]/[facility] #: [id number] [facility]
[2019-03-04] MEDS: NS 0.9% 1000 ML** 1,000 ML IV SCH (15:25)
[2019-03-04] MEDS ORDERED: BUPRENORPHINE TRANSDERM SCH (16:00)
[2019-03-04] MEDS ORDERED: fentaNYL* 50 MCG/ML 2 ML VIAL (100 MCG VIAL) ONE (16:45)
[2019-03-04] MEDS ORDERED: Midazolam* 1 MG/ML 10 ML VIAL (10 MG) ONE (16:45)
[2019-03-04] MEDS: Buprenorph Patch Check Q Shift 1 NOTE MISC FOLLOW UP SCH (19:33)
[2019-03-04] MEDS ORDERED: Melatonin 3 MG TAB PO PRN (20:28)
--- NOTE | 2019-03-04 20:33 | CONS ---
GASTROENTEROLOGY CONSULT: DATE OF CONSULTATION: 03/04/19 CONSULTING PHYSICIANS: ISAI Mota, Dipti Pacheco MD REASON FOR CONSULTATION: Ten days of nausea and vomiting HISTORY: This 63-year-old woman who had a vertical banded gastroplasty in 1987 and who has been treated for GERD with Nexium for well over 10 years, 10 days ago developed nausea with an increase in regurgitation symptoms in the evening. Later started vomiting and said she could not keep anything down. The day symptoms began had been stressful as her [id number] had been admitted to the hospital with a seizure. Although she said it was extremely stressful, she did not actually take the Xanax, which she has available PRN for acute anxiety. For many days, she would tend to have nausea and vomiting with almost anything. She contacted Dr Feliz prior GI office 4 days ago and was to be fit in today. Complaining of repeated nausea, vomiting, and loss of 10 pounds, she was directed to the emergency room. She was actually encouraged last night and this morning in being able to take in small amounts of food. PAST MEDICAL HISTORY: 1. Obesity - status post vertical banded gastroplasty. 2. Status post abdominoplasty. 3. . 4. History of coronary artery disease status post 4-vessel bypass, 2012. 5. Sleep apnea status post uvulopalatoplasty, 2000. 6. Fibromyalgia - followed by Dr. Parra. 7. Anxiety and depression and chronic pain - she has Prozac from her primary office, Butrans patch daily from the pain clinic and p.r.n. Xanax. 8. Lumbar disk surgery. 9. Right knee arthroplasty, July 2018. 10. Paternal family history of colon cancer - she has had [address] Feliz, most recently 2013. 11. Iron deficiency anemia - present in the past. Most recent iron saturation 14% in July 2018 and lowest was September 2014 at 5%. Currently, hemoglobin 13.2, hematocrit 37, MCV 83. MEDICATIONS: Of GI relevance: 1. Buprenorphine patch. 2. Cannabis extract daily. 3. Esomeprazole 40 mg daily (recently switched to morning use). 4. Hyoscyamine 0.125 most days. 5. Methocarbamol 500 mg h.s. p.r.n. pain. 6. Nabumetone 750 mg b.i.d. p.r.n. pain. ALLERGIES: MEPERIDINE, which causes nausea. FAMILY HISTORY: Her father at 52 of colon cancer. 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 She is and her healthcare proxy. REVIEW OF SYSTEMS: No recent history of fever, hemoptysis, hematemesis, passing blood. Her bowel habit is typically every other day and yesterday, she passed a small hard marble. No history of renal stones, seizures, psoriasis, rheumatoid arthritis, or hepatitis. EXAM: She is a very anxious middle-aged woman in no overt distress this moment. She is tearful. Blood pressure is 134/60, pulse 57. HEENT exam shows no icterus. Mucous membranes are normal, though she states she feels dry. She has no adenopathy. Her lungs are clear and heart sounds are regular. The abdomen shows an abdominoplasty scar across the suprapubic area. There is a vertical scar consistent with a and also VBG scar. There are no hernias. Rectal deferred. Extremities show no edema. There is a right knee scar. IMPRESSION: This 63-year-old woman has had 10 days of nausea, vomiting. She has lost some weight. She does not appear clinically dehydrated at the moment, though probably has some degree of that. Her CBC and chemistries are stable with a BUN of 22. Exactly 1 year ago, her BUN was 27 at another symptomatic time. The state of her erosive gastroesophageal reflux disease is relevant to know and upper endoscopy is planned. A couple of months back she switched her Nexium to the morning which should actually be the preferred time to take it leading to the supposition that the current flare of symptoms is probably not due to primarily loss of control of peptic control or gastroesophageal reflux disease, but lifestyle, stress and other factors. Conservative treatment seems indicated. [id number]/[facility] #: [id number] [facility]
--- NOTE | 2019-03-04 22:48 | PRO ---
DATE: 03/04/19 - ROOM #[id number] REFERRING PHYSICIANS: Dipti Pacheco ; Pattie Berg * PROCEDURE: Upper gastrointestinal endoscopy through to distal duodenum. INDICATION: This is a 63-year-old woman with a history of vertical-banded gastroplasty in 1987, comes in because of 10 days of nausea, vomiting. See separate consult. ENDOSCOPIST: Dr. Zhou. MEDICATIONS: Midazolam 8, fentanyl 75. FINDINGS: She is a substantially overweight middle-aged woman, in no overt distress. Her abdomen is firm, symmetric, deep tenderness and normal bowel sounds. She was positioned left side down and moderate sedation induced with sequential doses of medicine. EGD: Larynx - symmetric, limited views. Esophagus - easily entered. The mucosa was normal in the upper, mid and lower esophagus with the EG junction at 38. Then a moderately wide, short, quite loose hiatal hernia with a small erosion at 4 o'clock. There was potentially very short Byers's segment that was smooth and without any nodules or ridges. Stomach - the pouch appeared normal without any retention. There was potentially a little bit of erythema and congestion going down to the ring that was open and about twice scope diameter. Lower chamber - upper portion - moderate number of pale, soft polyps consistent with proton pump inhibitor use. The antrum appeared normal. Duodenum - the pylorus, bulb and second through fourth portions appeared normal. There were no areas appearing to need biopsy. The polyps have been well described before in several sequential EGDs by Dr. Feliz. IMPRESSION: 1. Small to medium hiatal hernia. 2. Smooth short segment Byers's - not biopsied today 3. Normal anatomy status post vertical-banded gastroplasty. 4. Gastric body polyps - consistent with proton pump inhibitor use. 5. Repetitive nausea and vomiting - source unclear, though anxiety or viral illness or other factors may be playing a role. Conservative treatment is indicated. An H2 tiffany could be added in the evening. It is notable the patient few months ago switched from evening dosing of Nexium to morning probably out of convenience. [id number]/[facility] #: [id number] [facility]
[2019-03-05] MEDS: NS 0.9% 1000 ML** 1,000 ML IV SCH (04:21)
[2019-03-05 05:13] LABS: ABS Eosinophils 0.1 10^3/ul (0-0.6); ABS Lymphocytes 2.1 10^3/ul (1.0-4.8); ABS Monocytes 0.4 10^3/ul (0-0.8); Eosinophil % 1.8 %; Hematocrit 36 % (35-47); Hemoglobin 12.3 g/dL (12.0-16.0); Lymphocyte % 44.6 %; Mean Corpuscular HGB Conc 34 g/dL (31-36); Mean Corpuscular Hemoglobin 29 pg (27-31); Mean Corpuscular Volume 83 fL (80-97); Mean Platelet Volume 8.4 fL (7.4-10.4); Nucleated Red Blood Cells % 0.1; Platelet Count 181 10^3/uL (150-450); Red Cell Distribution Width 14 % (10-15); White Blood Count 4.6 10^3/uL (3.5-10.8)
[2019-03-05 05:23] LABS: Albumin 3.5 g/dL (3.2-5.2); Albumin/Globulin Ratio 1.7 (1-3); BUN/Creatinine Ratio 21.2 (8-20); Calcium 8.4 mg/dL (8.6-10.3); EGFR African American 110.2 (>60); Globulin 2.1 g/dL (2-4); Potassium 3.7 mmol/L (3.5-5.0); Total Bilirubin 0.5 mg/dL (0.2-1.0); Total Protein 5.6 g/dL (6.4-8.9)
[2019-03-05] MEDS ORDERED: Lisinopril TAB* 5 MG PO SCH (09:00)
[2019-03-05] MEDS ORDERED: Pantoprazole TAB * 40 MG TAB PO SCH (09:00)
[2019-03-05] MEDS ORDERED: FLUoxetine CAP* 20 MG PO SCH (09:00)
[2019-03-05] MEDS: Buprenorph Patch Check Q Shift 1 NOTE MISC FOLLOW UP SCH (09:00)
[2019-03-05] MEDS ORDERED: Atorvastatin* 10 MG TAB PO SCH (09:00)
[2019-03-05 09:44] VITALS: BP 128/58
[2019-03-05] MEDS ORDERED: Famotidine TAB* 20 MG PO SCH (21:00)
--- NOTE | 2019-03-05 22:37 | DS ---
CC: Dr. Dipti Pacheco; Radha Grimaldo NP; Dr. Huerta DISCHARGE SUMMARY: DATE OF ADMISSION: 03/04/19 DATE OF DISCHARGE: 03/05/19 PRIMARY CARE PROVIDER: Dr. Dipti Pacheco. CARPET RENOVATOR: Dr. Huerta. CONSULTING CARPET RENOVATOR: Dr. Syed Zhou. DISCHARGE DIAGNOSES: 1. Nausea and vomiting of unclear etiology, may be secondary to viral infection vs anxiety vs esophageal obstruction . 2. Constipation. SECONDARY DIAGNOSES: 1. Coronary artery disease status post 4-vessel coronary artery bypass graft. 2. Hypertension. 3. Hyperlipidemia. 4. Gastroesophageal reflux disease. 5. Byers's esophagus. 6. Hiatal hernia. 7. Esophageal spasms. 8. Fibromyalgia. 9. Osteoarthritis. 10. Obesity with a BMI of 33. 11. Anxiety. 12. Depression. MEDICATION LIST: 1. CBD extract 100 mg p.o. daily. 2. Vitamin B complex 1 capsule p.o. daily. 3. Cholecalciferol 2000 units p.o. daily. 4. Multivitamin 1 capsule p.o. daily. 5. Acyclovir ointment topical 6 times a day in case of herpes breakout. 6. Hyoscyamine 0.125 mg p.o. daily as needed for pain. 7. Esomeprazole 40 mg p.o. daily. 8. Alprazolam 0.25 mg p.o. t.i.d. as needed for anxiety. 9. Lidocaine 5% ointment topical daily. 10. Rosuvastatin 5 mg p.o. daily. 11. Voltaren gel 1% topical b.i.d. as needed for pain. 12. Nabumetone 750 mg p.o. b.i.d. as needed for pain. 13. Methocarbamol 500 mg p.o. at bedtime as needed for moderate pain. 14. Ondansetron 4 mg p.o. q.8 hours p.r.n. nausea. 15. Lisinopril 5 mg p.o. daily. 16. Fluoxetine 20 mg p.o. daily. 17. Hydrocodone/acetaminophen 7.5/300 one tablet p.o. q.6 hours p.r.n. pain. 18. Butrans patch 7.5 mcg topical q.7 days. New Medications: 1. MiraLAX 17 g p.o. daily as needed for constipation. 2. Famotidine 20 mg p.o. at bedtime. HOSPITAL COURSE: Mrs. Winters is a 63-year-old female with a past medical history stated above that presented to the emergency room with complaints of nausea and vomiting that had started about 10 days ago after a family emergency. For more details about her presentation, I refer you to her history and physical. The patient states that she felt like she had an esophageal obstruction because this is similar to symptoms that she had in the past. She had an abdomen x-ray done in the emergency room that showed no evidence for obstruction but moderate to large amount of retained stool. She was seen in consultation by Gastroenterology (Dr. Zhou), and his impression was the patient will need an upper endoscopy as she has a history of erosive gastroesophageal reflux disease. Upper endoscopy showed a small to medium hiatal hernia with a smooth short segment of Byers's. A normal anatomy status post vertical banded gastroplasty. There were some gastric body polyps consistent with proton-pump inhibitor use. Dr. Zhou felt that there was no clear source for her nausea and vomiting on that endoscopy, but anxiety or a viral illness could be playing a role. He recommended continue PPI and adding an H2 tiffany that the patient could take in the evening. On the day of discharge, the patient was anxious to go home. She states that her symptoms were resolved. She had a clear liquid diet ordered for breakfast that she declined and actually had an apple feeder that her brought for home and she stated that she had no issue swallowing, no nausea, no vomiting, and felt well to go home. The etiology of her symptoms is unclear at this time. The patient states that it feels like an episode of esophageal obstruction that she had in the past, but nothing was found in her endoscopy to justify it. It could be associated with the anxiety she experienced with her family emergency or a viral process. In any case, the patient is likely stable to be discharged home today to follow up with her primary care provider as outpatient. It is unclear if her constipation was playing a role in her symptoms; but in any case due to her pain regimen, the patient would benefit of a bowel regimen with MiraLAX to avoid worsening of her constipation. She did have a bowel movement in the hospital prior to discharge. PHYSICAL EXAMINATION ON ADMISSION: Vital Signs: Temperature 98.3, heart rate is 67, respiratory rate 16, oxygen saturation 96% on room air, blood pressure is 120/76. General: The patient is a pleasant obese lady, sitting up in bed, in no acute distress. CVS: Normal S1 and S2. Regular rate and rhythm. Chest : Breath sounds present bilaterally, no added sounds. Abdomen is soft and nontender, bowel sounds present. Extremities: No edema. Neuro: She is alert and oriented x3. Able to move all 4 extremities. DIET: Heart-healthy diet. ACTIVITY: As tolerated. DISPOSITION: To home. STATUS WHILE IN THE HOSPITAL: Observation. CONDITION AT THE TIME OF DISCHARGE: Fair. Please keep in mind this is a summarized version of this patient's hospital stay. If you need more information, please feel free to call me at [phone] or please obtain the full medical records. TIME SPENT: Approximately 45 minutes were spent on this discharge. [id number]/CPS #: [id number] MTDD
== END 2019-03-05 10:40 | disposition home or self-care (01) ==
LOC: ED 10:21 → INTOOBSV 13:59 → MED 13:59
PROVIDERS: ADMIT Internal Medicine; ATTEND Internal Medicine
DX: R11.2 Nausea with vomiting, unspecified (principal); K59.00 Constipation, unspecified; K44.9 Diaphragmatic hernia without obstruction or gangrene; I25.10 Atherosclerotic heart disease of native coronary artery without angina pectoris; Z95.5 Presence of coronary angioplasty implant and graft; I10 Essential (primary) hypertension; E78.5 Hyperlipidemia, unspecified; K21.9 Gastro-esophageal reflux disease without esophagitis; K22.70 Barrett's esophagus without dysplasia; M79.7 Fibromyalgia; M19.90 Unspecified osteoarthritis, unspecified site; E66.9 Obesity, unspecified; Z68.33 Body mass index [BMI] 33.0-33.9, adult; F41.9 Anxiety disorder, unspecified; F32.9 Major depressive disorder, single episode, unspecified; Z79.899 Other long term (current) drug therapy
CPT/HCPCS: 36415; 74019; 80053; 83690; 83735; 85025; 96361; 96374; 96375; 99156; 99284; A9270-GY; G0378; J2060; J2250; J3010; J3475